=== PATIENT | female | born 1960 | race Caucasian/White ===

== ENCOUNTER 2018-07-31 20:55 | Emergency (ER) | payer BC ==
[~2018-07-31] VITALS: Ht 175.3 cm; Wt 76.4 kg
[2018-07-31 20:58] VITALS: BP 146/66
[2018-07-31] MEDS ORDERED: HYDROcodone/acetaminophen 5mg/325mg tablet PO ONE (21:05)
[2018-07-31] MEDS ORDERED: OXYC-145 PO (23:02)
== END 2018-07-31 23:51 | disposition home or self-care (01) ==
LOC: ER 20:56
DX: S90.01XA Contusion of right ankle, initial encounter (principal); Z79.899 Other long term (current) drug therapy; W10.9XXA Fall (on) (from) unspecified stairs and steps, initial encounter; Y93.89 Activity, other specified; Y92.009 Unspecified place in unspecified non-institutional (private) residence as the place of occurrence of the external cause; Y99.8 Other external cause status
CPT/HCPCS: 29515; 73610; 73630; 99283